=== PATIENT | male | born 1990 | race Caucasian/White ===

== ENCOUNTER 2016-09-21 16:56 | Inpatient (IN) | payer OTHER ==
[2016-09-21 16:56] VITALS: O2SAT 96
--- NOTE | 2016-09-21 17:25 | PD ---
HPI Chief Complaint: fell off of a roof Time Seen by Provider: 17:17 Travel History International Travel<30 days: No Contact w/Intl Traveler<30days: No Traveled to known affect area: No History of Present Illness HPI This patient presents as a trauma alert. He is a 32-year-old male who fell off of a roof. It's unclear how high the roof was. I gave report to trauma surgeon was present upon arrival of the patient. Patient arrives tachycardic at 125 with a blood pressure of 100 systolic and a rectal temperature of 103.6. He seems a bit confused. He is not able to provide much in the way of review of systems or history. He does not know why he fell. 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 Symptoms are severe. No alleviating factors. Duration 1 hour Review of Systems ROS Limitations: Clinical Condition, Altered Mental Status, Poor Historian Physical Exam Narrative GENERAL: Well-nourished, well-developed with confusion and immobilized. SKIN: Focused skin assessment reveals no rash and nodules. Skin is hot and dry. HEAD: Atraumatic. Normocephalic. EYES: Pupils equal and round. No scleral icterus. No injection or drainage. ENT: No nasal bleeding or discharge. Mucous membranes pink and moist. NECK: Trachea midline. No JVD. He has a jury rigged neck immobilizing device which we have switched to a [place] collar. He has no midline neck tenderness CARDIOVASCULAR: Regular rate and rhythm. No murmur appreciated. Tachycardic 125 RESPIRATORY: No accessory muscle use. Clear to auscultation. Breath sounds equal bilaterally. GASTROINTESTINAL: Abdomen soft, non-tender, nondistended. Hepatic and splenic margins not palpable. MUSCULOSKELETAL: No obvious deformities. No clubbing. No cyanosis. No edema. NEUROLOGICAL: Awake and alert. No obvious cranial nerve deficits. Motor grossly within normal limits. Normal speech. PSYCHIATRIC: Fairly calm mood and flat affect; insight and judgment reduced. Data Data Last Documented VS Vital Signs Date Time Temp Pulse Resp B/P Pulse Ox O2 Delivery O2 Flow Rate FiO2 09/21/16 18:00 Room Air 5.00 97 Nasal Cannula 09/21/16 16:56 96 Orders I-Stat Profile (09/21/16 17:20) I-Stat Creatinine (09/21/16 17:20) Complete Blood Count With Diff (09/21/16 17:20) Prothrombin Time / Inr (Pt) (09/21/16 17:20) Act Partial Throm Time (Ptt) (09/21/16 17:20) Type And Screen (09/21/16 17:20) Alcohol (Ethanol) (09/21/16 17:20) Chest, Single Ap (09/21/16 17:20) Pelvis, Ap Only (Routine) (09/21/16 17:20) Ct Thorax/ Chest W Iv Contrast (09/21/16 17:20) Ct Abd/Pel W Iv Contrast(Rout) (09/21/16 ) Ct Cerv Spine W/O Contrast (09/21/16 ) Ct Brain W/O Iv Contrast(Rout) (09/21/16 ) Iohexol 350 Inj (Omnipaque 350 Inj) (09/21/16 17:51) Collar [place] (09/21/16 ) Labs Laboratory Tests Test 09/21/16 17:00 White Blood Count 17.1 TH/MM3 Red Blood Count 4.77 MIL/MM3 Hemoglobin 14.0 GM/DL Bedside Hemoglobin 14.6 G/DL Hematocrit 41.9 % Bedside Hematocrit 43.0 % Mean Corpuscular Volume 87.7 FL Mean Corpuscular Hemoglobin 29.2 PG Mean Corpuscular Hemoglobin 33.3 % Concent Red Cell Distribution Width 13.1 % Platelet Count 432 TH/MM3 Mean Platelet Volume 8.3 FL Neutrophils (%) (Auto) 47.2 % Lymphocytes (%) (Auto) 39.6 % Monocytes (%) (Auto) 8.9 % Eosinophils (%) (Auto) 3.7 % Basophils (%) (Auto) 0.6 % Neutrophils # (Auto) 8.0 TH/MM3 Lymphocytes # (Auto) 6.8 TH/MM3 Monocytes # (Auto) 1.5 TH/MM3 Eosinophils # (Auto) 0.6 TH/MM3 Basophils # (Auto) 0.1 TH/MM3 CBC Comment AUTO DIFF Differential Total Cells 100 Counted Neutrophils % (Manual) 54 % Band Neutrophils % 6 % Lymphocytes % 33 % Monocytes % 5 % Eosinophils % 2 % Neutrophils # (Manual) 10.3 TH/MM3 Differential Comment FINAL DIFF MANUAL Platelet Estimate NORMAL Platelet Morphology Comment NORMAL Red Cell Morphology Comment NORMAL Prothrombin Time 10.7 SEC Prothromb Time International 1.0 RATIO Ratio Activated Partial 26.5 SEC Thromboplast Time Bedside Sodium 138 MMOL/L Bedside Potassium 3.7 MMOL/L Bedside Chloride 102 MMOL/L Bedside Blood Urea Nitrogen 9 MG/DL Bedside Creatinine 1.5 MG/DL Bedside Glucose 148 MG/DL Ethyl Alcohol Level LESS THAN 3 MG/DL Blood Type A POSITIVE Antibody Screen NEGATIVE MDM Medical Screen Exam Complete: Yes Emergency Medical Condition: Yes Medical Record Reviewed: Yes Differential Diagnosis Intracranial hemorrhage, intra-abdominal organ injury, hemorrhagic shock, heatstroke, meningitis Narrative Course 2 IVs placed I gave him 2 L normal saline IV bolus I reviewed his chest x-ray which shows no pneumothorax or rib fracture I reviewed his pelvis x-ray which looks normal Patient went to CT scanner with trauma surgeon Brain CT shows abnormal areas that are not definitively hemorrhage but should be followed Cervical spine CT is neg Chest CT shows groundglass infiltrate Abdomen and pelvis [place] [id number] Metabolic profile is normal Coagulation studies are normal Alcohol level is neg Patient is admitted and has a lot going on including fever tachycardia and mental status change as well as the abnormal brain CT and chest CT findings I considered the possibility he had heatstroke while up on the roof and that caused him to fall. Unclear at this point. Differential includes meningitis and other febrile illnesses Critical Care Narrative Aggregate critical care time was 36 minutes. Time to perform other separately billable procedures was not included in the critical care time. My time did not include minutes spent treating any other patients simultaneously or on activities that did not directly contribute to the patient's treatment. The services I provided to this patient were to treat and/or prevent clinically significant deterioration that could result in: Hemorrhagic shock, intracranial hemorrhage, intra-abdominal organ injury him a cardiopulmonary arrest I provided critical care services requiring my management, as noted below: Chart data review, documentation time, medication orders and management, vital sign assessments/reviewing monitor data, ordering and reviewing lab tests, ordering and interpreting/reviewing x-rays and diagnostic studies, care of the patient and discussion of the patient with the admitting physicians. Trauma Alert - Level One Trauma Alert Level One: Full trauma team activate Diagnosis Diagnosis: Primary Impression: Fall Qualified Code: W19.XXXA - Fall, initial encounter Additional Impressions: Head injury due to trauma Qualified Code: S09.90XA - Head injury due to trauma, initial encounter Altered mental status Qualified Code: R41.82 - Altered mental status, unspecified altered mental status type Fever Qualified Code: R50.9 - Fever, unspecified fever cause Admitting Physician Requests: it Toni Mosqueda MD Sep 21, 2016 17:25
[2016-09-21 17:27] LABS: I-STAT POTASSIUM 3.7 MMOL/L (3.5-4.9); I-STAT SODIUM 138 MMOL/L (138-146)
[2016-09-21 17:30] LABS: BASOPHIL # 0.1 TH/MM3 (0-0.2); BASOPHIL % 0.6 % (0.0-2.0); EOSINOPHIL # 0.6 TH/MM3 (0-0.4); EOSINOPHIL % 3.7 % (0.0-4.0); HEMATOCRIT 41.9 % (39.0-51.0); LYMPH % 39.6 % (9.0-44.0); LYMPHOCYTE # 6.8 TH/MM3 (1.0-4.8); MEAN CELL VOLUME 87.7 FL (80.0-100.0); MEAN CORPUSCULAR HEMOGLOBIN 29.2 PG (27.0-34.0); MEAN CORPUSCULAR HGB CONC 33.3 % (32.0-36.0); MONO % 8.9 % (0.0-8.0); NEUT % 47.2 % (16.0-70.0); PLATELET COUNT 432 TH/MM3 (150-450); RED BLOOD COUNT 4.77 MIL/MM3 (4.50-5.90); RED CELL DISTRIBUTION WIDTH 13.1 % (11.6-17.2); WHITE BLOOD COUNT 17.1 TH/MM3 (4.0-11.0)
[2016-09-21 17:33] LABS: HEMO FLAGS AUTO DIFF
[2016-09-21 17:37] LABS: APTT (PATIENT) 26.5 SEC (24.3-30.1); PROTHROMBIN TIME - PATIENT 10.7 SEC (9.8-11.6)
--- NOTE | 2016-09-21 17:50 | RADRPT ---
EXAM DATE/TIME: 09/21/2016 17:19 [facility] COMPARISON: No previous studies available for comparison. INDICATIONS : Trauma Alert-Patient fall from roof. RADIATION DOSE: 69.15 CTDIvol (mGy) MEDICAL HISTORY : Non-responsive. SURGICAL HISTORY : Non-responsive. ENCOUNTER: Initial ACUITY: 1 day PAIN SCALE: 0/10 LOCATION: cranial TECHNIQUE: Multiple contiguous axial images were obtained of the head. Using automated exposure control and adj ustment of the mA and/or kV according to patient size, radiation dose was kept as low as reasonably a chievable to obtain optimal diagnostic quality images. DICOM format image data is available electro nically for review and comparison. FINDINGS: The scan is suboptimal secondary to motion and positioning. There are couple of areas of subtly incre ased spontaneous density in the left basal ganglia region which are not clearly hemorrhage however fo llowup may be appropriate. The ventricles are grossly symmetric and normal. No abnormal extra-axial f luid accumulation or mass is identified. There is nothing to suggest acute infarction. There is mild sinus disease present. No evidence of skull fracture. CONCLUSION: Technically limited exam. Areas of subtly increased density in the left basal ganglia should likely b e followed. Johny Hitchcock MD on September 21, 2016 at 17:40 Board Certified Radiologist. This report was verified electronically.
[2016-09-21] MEDS ORDERED: IOHEXOL 350 MG/ML 10 ML VIAL (for RAD DIAG) IV ONE (17:51)
--- NOTE | 2016-09-21 17:56 | RADRPT ---
EXAM DATE/TIME: 09/21/2016 16:52 [facility] COMPARISON: No previous studies available for comparison. INDICATIONS : Trauma alert. Fall off roof. MEDICAL HISTORY : None. SURGICAL HISTORY : None. ENCOUNTER: Initial ACUITY: 1 day PAIN SCORE: Non-responsive. LOCATION: Bilateral chest FINDINGS: The lungs are clear without infiltrate, nodule, or mass. There is no appreciable pleural effusion fo r technique. Heart and mediastinum are unremarkable. CONCLUSION: No acute cardiopulmonary disease. Lashonda Fuentes MD on September 21, 2016 at 17:55 Board Certified Radiologist. This report was verified electronically.
[2016-09-21 18:00] VITALS: BP 116/54; PULSE 113; RESP 27; TEMP 100.6; O2SAT 95
[2016-09-21 18:03] LABS: BANDS 6 % (0-6); EOSINOPHILS 2 % (0-4); NEUTROPHIL # MANUAL DIFF 10.3 TH/MM3 (1.8-7.7); PLATELET ESTIMATE SMEAR NORMAL (NORMAL); PLATELET MORPHOLOGY NORMAL (NORMAL); POLYS (SEG NEUTROPHILS) 54 % (16-70); SCAN/DIFF FINAL DIFF MANUAL; WBC DIFF SAMPLE 100
--- NOTE | 2016-09-21 18:04 | RADRPT ---
EXAM DATE/TIME: 09/21/2016 16:52 [facility] COMPARISON: No previous studies available for comparison. INDICATIONS : Trauma alert. Fall off roof. MEDICAL HISTORY : None. SURGICAL HISTORY : None. ENCOUNTER: Initial ACUITY: 1 day PAIN SCORE: Non-responsive. LOCATION: Bilateral pelvis. FINDINGS: A single frontal view of the pelvis demonstrates artifact from the EMS board obscuring the left femor al neck. No fracture observed. The bony pelvic ring is intact. Bony mineralization is normal. The s oft tissues are intact. CONCLUSION: No fracture observed on this limited study. Keny Patrick Jr., MD on September 21, 2016 at 17:58 Board Certified Radiologist. This report was verified electronically.
--- NOTE | 2016-09-21 18:06 | RADRPT ---
EXAM DATE/TIME: 09/21/2016 17:21 [facility] COMPARISON: No previous studies available for comparison. INDICATIONS : Trauma, patient fell off roof. RADIATION DOSE: 45.28 CTDIvol (mGy) MEDICAL HISTORY : Non-responsive. SURGICAL HISTORY : Non-responsive. ENCOUNTER: Initial ACUITY: 1 day PAIN SCALE: 0/10 LOCATION: neck TECHNIQUE: Volumetric scanning of the cervical spine was performed. Multiplanar reconstructions in the sagittal, coronal and oblique axial planes were performed. Using automated exposure control and adjustment o f the mA and/or kV according to patient size, radiation dose was kept as low as reasonably achievable to obtain optimal diagnostic quality images. DICOM format image data is available electronically f or review and comparison. FINDINGS: VERTEBRAE: Normal vertebral body height. ALIGNMENT: No evidence of subluxation. C2-C3: The bony spinal canal is normal in size. No evidence of disc bulge or herniation. The neural forami na are bilaterally patent. C3-C4: The bony spinal canal is normal in size. No evidence of disc bulge or herniation. The neural forami na are bilaterally patent. C4-C5: The bony spinal canal is normal in size. No evidence of disc bulge or herniation. The neural forami na are bilaterally patent. C5-C6: The bony spinal canal is normal in size. No evidence of disc bulge or herniation. The neural forami na are bilaterally patent. C6-C7: The bony spinal canal is normal in size. No evidence of disc bulge or herniation. The neural forami na are bilaterally patent. C7-T1: The bony spinal canal is normal in size. No evidence of disc bulge or herniation. The neural forami na are bilaterally patent. CONCLUSION: Normal examination. Keny Patrick Jr., MD on September 21, 2016 at 18:03 Board Certified Radiologist. This report was verified electronically.
--- NOTE | 2016-09-21 18:10 | RADRPT ---
EXAM DATE/TIME: 09/21/2016 17:23 [facility] COMPARISON: No previous studies available for comparison. INDICATIONS : Trauma, patient feel off roof. IV CONTRAST: 100 cc Omnipaque 350 (iohexol) IV ; Cumulative dose for multiple exams. RADIATION DOSE: 10.37 CTDIvol (mGy) ; Combined studies - Thorax/Abdomen/Pelvis MEDICAL HISTORY : Non-responsive. SURGICAL HISTORY : Non-responsive. ENCOUNTER: Initial ACUITY: 1 day PAIN SCALE: 0/10 LOCATION: chest TECHNIQUE: Volumetric scanning of the chest was performed. Using automated exposure control and adjustment of t he mA and/or kV according to patient size, radiation dose was kept as low as reasonably achievable to obtain optimal diagnostic quality images. DICOM format image data is available electronically for review and comparison. Follow-up recommendations for incidentally detected pulmonary nodules are based at a minimum on nodul e size and patient risk factors according to Fleischner Society Guidelines. FINDINGS: LUNGS: Patchy areas of groundglass opacity are seen within the right upper lobe. There is a 1 cm area of nod ularity associated with this which is also groundglass in density. No focal mass. No bronchiectasis. PLEURA: There is no pleural thickening or pleural effusion. MEDIASTINUM: The heart and great vessels demonstrate no acute abnormality. There is no mediastinal or hilar lymph adenopathy. AXILLAE: Within normal limits. No lymphadenopathy. SKELETAL: Within normal limits for patient age. MISCELLANEOUS: The visualized upper abdominal organs demonstrate no acute abnormality. CONCLUSION: 1. No acute intrathoracic abnormality. 2. Vague area of groundglass opacity within the right upper lobe with an associated 1 cm area of grou ndglass nodularity. This could simply relate to atelectasis. Given the nodularity I would suggest a r epeat CT of the thorax in 6 months. Keny Patrick Jr., MD on September 21, 2016 at 18:05 Board Certified Radiologist. This report was verified electronically.
--- NOTE | 2016-09-21 18:13 | RADRPT ---
EXAM DATE/TIME: 09/21/2016 17:25 [facility] COMPARISON: No previous studies available for comparison. INDICATIONS : Trauma Alert-Patient fall from roof. IV CONTRAST: 100 cc Omnipaque 350 (iohexol) IV ORAL CONTRAST: No oral contrast ingested. RADIATION DOSE: 10.73 CTDIvol (mGy) ; Combined studies - Thorax/Abdomen/Pelvis MEDICAL HISTORY : Non-responsive. SURGICAL HISTORY : Non-responsive. ENCOUNTER: Initial ACUITY: 1 day PAIN SCALE: Non-responsive LOCATION: Bilateral lower quadrant TECHNIQUE: Volumetric scanning of the abdomen and pelvis was performed. Using automated exposure control and ad justment of the mA and/or kV according to patient size, radiation dose was kept as low as reasonably achievable to obtain optimal diagnostic quality images. DICOM format image data is available electro nically for review and comparison. FINDINGS: LOWER LUNGS: The visualized lower lungs are clear. LIVER: Homogeneous density without lesion. There is no dilation of the biliary tree. No calcified gallston es. SPLEEN: Normal size without lesion. PANCREAS: Within normal limits. KIDNEYS: Normal in size and shape. There is no mass, stone or hydronephrosis. ADRENAL GLANDS: Within normal limits. VASCULAR: There is no aortic aneurysm. BOWEL/MESENTERY: The stomach, small bowel, and colon demonstrate no acute abnormality. There is no free intraperitone al air or fluid. ABDOMINAL WALL: Within normal limits. RETROPERITONEUM: There is no lymphadenopathy. BLADDER: No wall thickening or mass. REPRODUCTIVE: Within normal limits. INGUINAL: There is no lymphadenopathy or hernia. 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 No fractures or dislocations. CONCLUSION: 1. No acute abnormality. Keny Patrick Jr., MD on September 21, 2016 at 18:08 Board Certified Radiologist. This report was verified electronically.
[2016-09-21] MEDS ORDERED: MISCELLANEOUS NURSING INFORMATION XX SCH (18:30)
[2016-09-21] MEDS ORDERED: ONDANSETRON HCL 4 MG/2 ML VIAL IV PRN (18:30)
[2016-09-21] MEDS ORDERED: CHLORHEXIDINE GLUCONATE 2 % 1 PACK (2 CLOTHS) TOP PRN (18:30)
--- NOTE | 2016-09-21 18:51 | HHI.HP ---
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-story height, according to paramedics he was apparently having agonal breathing was not awake or alert, arrival patient is tachycardic, rectal temperature 103, slow to respond, ultimately a GCS of 14-15, appears dehydrated, BPstable, moving all 4 extremities Review of Systems Constitutional: DENIES: Diaphoretic episodes, Fatigue, Fever, Weight gain, Weight loss, Chills, Dizziness, Change in appetite, Night Sweats Endocrine: DENIES: Heat/cold intolerance, Polydipsia, Polyuria, Polyphagia Eyes: DENIES: Blurred vision, Diplopia, Eye inflammation, Eye pain, Vision loss , Photosensitivity, Double Vision Ears, nose, mouth, throat: DENIES: Tinnitus, Hearing loss, Vertigo, Nasal discharge, Oral lesions, Throat pain, Hoarseness, Ear Pain, Running Nose, Epistaxis, Sinus Pain, Toothache, Odynophagia Respiratory: DENIES: Apneas, Cough, Snoring, Wheezing, Hemoptysis, Sputum production, Shortness of breath Cardiovascular: DENIES: Chest pain, Palpitations, Syncope, Dyspnea on Exertion , PND, Lower Extremity Edema, Orthopnea, Claudication Gastrointestinal: DENIES: Abdominal pain, Black stools, Bloody stools, Constipation, Diarrhea, Nausea, Vomiting, Difficulty Swallowing, Anorexia Genitourinary: DENIES: Sexual dysfunction, Urinary frequency, Urinary incontinence, Urgency, Hematuria, Dysuria, Nocturia, Penile Discharge, Testicular Pain, Testicular Swelling Musculoskeletal: DENIES: Joint pain, Muscle aches, Stiffness, Joint Swelling, Back pain, Neck pain Integumentary: DENIES: Abnormal pigmentation, Nail changes, Pruritus, Rash Hematologic/lymphatic: DENIES: Bruising, Lymphadenopathy Immunologic/allergic: DENIES: Eczema, Urticaria Neurologic: DENIES: Abnormal gait, Headache, Localized weakness, Paresthesias, Seizures, Speech Problems, Tremor, Poor Balance Psychiatric: DENIES: Anxiety, Confusion, Mood changes, Depression, Hallucinations, Agitation, Suicidal Ideation, Homicidal Ideation, Delusions Past Family Social History Allergies: Coded Allergies: No Known Allergies (Unverified , 09/21/16) Past Medical History none Past Surgical History none Reported Medications none Active Ordered Medications none Family History none Social History none Physical Exam Vital Signs Vital Signs Date Time Temp Pulse Resp B/P Pulse Ox O2 Delivery O2 Flow Rate FiO2 09/21/16 18:00 Room Air 5.00 97 Nasal Cannula 09/21/16 16:56 96 4.00 09/21/16 16:56 96 Nasal Cannula 4.00 Physical Exam GENERAL: This is a well-nourished, well-developed patient, in mildt distress. SKIN: No rashes, ecchymoses or lesions. Cool and dry. HEAD: Atraumatic. Normocephalic. No temporal or scalp tenderness. EYES: Pupils equal round and reactive. Extraocular motions intact. No scleral icterus. No injection or drainage. ENT: Nose without bleeding, purulent drainage. Airway patent. NECK: Trachea midline. No JVD or lymphadenopathy. Supple, nontender, no meningeal signs. CARDIOVASCULAR: Regular rate and rhythm without murmurs, gallops, or rubs. RESPIRATORY: Clear to auscultation. Breath sounds equal bilaterally. No wheezes , rales, or rhonchi. GASTROINTESTINAL: Abdomen soft, non-tender, nondistended. or palpable masses. No guarding. MUSCULOSKELETAL: Extremities without clubbing, cyanosis, or edema. No joint tenderness, effusion, or edema noted. NEUROLOGICAL: Awake and alert. Cranial nerves II through XII intact. Motor and sensory grossly within normal limits. Five out of 5 muscle strength in all muscle groups. Normal speech. Laboratory Laboratory Tests Test 09/21/16 17:00 White Blood Count 17.1 Red Blood Count 4.77 Hemoglobin 14.0 Bedside Hemoglobin 14.6 Hematocrit 41.9 Bedside Hematocrit 43.0 Mean Corpuscular Volume 87.7 Mean Corpuscular Hemoglobin 29.2 Mean Corpuscular Hemoglobin 33.3 Concent Red Cell Distribution Width 13.1 Platelet Count 432 Mean Platelet Volume 8.3 Neutrophils (%) (Auto) 47.2 Lymphocytes (%) (Auto) 39.6 Monocytes (%) (Auto) 8.9 Eosinophils (%) (Auto) 3.7 Basophils (%) (Auto) 0.6 Neutrophils # (Auto) 8.0 Lymphocytes # (Auto) 6.8 Monocytes # (Auto) 1.5 Eosinophils # (Auto) 0.6 Basophils # (Auto) 0.1 CBC Comment AUTO DIFF Differential Total Cells 100 Counted Neutrophils % (Manual) 54 Band Neutrophils % 6 Lymphocytes % 33 Monocytes % 5 Eosinophils % 2 Neutrophils # (Manual) 10.3 Differential Comment FINAL DIFF MANUAL Platelet Estimate NORMAL Platelet Morphology Comment NORMAL Red Cell Morphology Comment NORMAL Prothrombin Time 10.7 Prothromb Time International 1.0 Ratio Activated Partial 26.5 Thromboplast Time Bedside Sodium 138 Bedside Potassium 3.7 Bedside Chloride 102 Bedside Blood Urea Nitrogen 9 Bedside Creatinine 1.5 Bedside Glucose 148 Ethyl Alcohol Level LESS THAN 3 Blood Type A POSITIVE Antibody Screen NEGATIVE Result Diagram: 09/21/16 1700 Course Last Impressions Pelvis X-Ray 09/21/16 1720 Signed Impressions: Service Date/Time: Wednesday, September 21, 2016 16:52 - CONCLUSION: No fracture observed on this limited study. Keny Patrick Jr., MD Chest X-Ray 09/21/161719 Signed Impressions: Service Date/Time: Wednesday, September 21, 2016 16:52 - CONCLUSION: No acute cardiopulmonary disease. Lashonda Fuentes MD Chest CT 09/21/160 Signed Impressions: Service Date/Time: Wednesday, September 21, 2016 17:23 - CONCLUSION: 1. No acute intrathoracic abnormality. 2. Vague area of groundglass opacity within the right upper lobe with an associated 1 cm area of groundglass nodularity. This could simply relate to atelectasis. Given the nodularity I would suggest a repeat CT of the thorax in 6 months. Keny Patrick Jr., MD Head CT 09/21/16 0000 Signed Impressions: Service Date/Time: Wednesday, September 21, 2016 17:19 - CONCLUSION: Technically limited exam. Areas of subtly increased density in the left basal ganglia should likely be followed. Johny Hitchcock MD Cervical Spine CT 09/21/16 0000 Signed Impressions: Service Date/Time: Wednesday, September 21, 2016 17:21 - CONCLUSION: Normal examination. Keny Patrick Jr., MD Abdomen/Pelvis CT 09/21/16 0000 Signed Impressions: Service Date/Time: Wednesday, September 21, 2016 17:25 - CONCLUSION: 1. No acute abnormality. Keny Patrick Jr., MD Assessment and Plan Assessment and Plan Heat stroke no Traumatic injuries on CAT scan also denies pain neuro intact Admit to the ICU follow temperature If requires- active cooling hydrate Fouzia Eduardo MD Sep 21, 2016 18:51
--- NOTE | 2016-09-21 19:05 | PD.CONS ---
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 On arrival to emergency department the patient was tachycardic with a rectal temperature 103 and slow response. His GCS in the emergency department was 14-15 heat, he appeared significantly dehydrated without significant body injury. Review of Systems Constitutional: COMPLAINS OF: Diaphoretic episodes, DENIES: Fatigue, Fever, Weight gain, Weight loss, Chills, Dizziness, Change in appetite, Night Sweats Endocrine: DENIES: Heat/cold intolerance, Polydipsia, Polyuria, Polyphagia Eyes: DENIES: Blurred vision, Diplopia, Eye inflammation, Eye pain, Vision loss , Photosensitivity, Double Vision Ears, nose, mouth, throat: DENIES: Tinnitus, Hearing loss, Vertigo, Nasal discharge, Oral lesions, Throat pain, Hoarseness, Ear Pain, Running Nose, Epistaxis, Sinus Pain, Toothache, Odynophagia Respiratory: DENIES: Apneas, Cough, Snoring, Wheezing, Hemoptysis, Sputum production, Shortness of breath Cardiovascular: DENIES: Chest pain, Palpitations, Syncope, Dyspnea on Exertion , PND, Lower Extremity Edema, Orthopnea, Claudication Gastrointestinal: DENIES: Abdominal pain, Black stools, Bloody stools, Constipation, Diarrhea, Nausea, Vomiting, Difficulty Swallowing, Anorexia Genitourinary: DENIES: Sexual dysfunction, Urinary frequency, Urinary incontinence, Urgency, Hematuria, Dysuria, Nocturia, Penile Discharge, Testicular Pain, Testicular Swelling Musculoskeletal: DENIES: Joint pain, Muscle aches, Stiffness, Joint Swelling, Back pain, Neck pain Integumentary: DENIES: Abnormal pigmentation, Nail changes, Pruritus, Rash Hematologic/lymphatic: DENIES: Bruising, Lymphadenopathy Immunologic/allergic: DENIES: Eczema, Urticaria Neurologic: DENIES: Abnormal gait, Headache, Localized weakness, Paresthesias, Seizures, Speech Problems, Tremor, Poor Balance Psychiatric: DENIES: Anxiety, Confusion, Mood changes, Depression, Hallucinations, Agitation, Suicidal Ideation, Homicidal Ideation, Delusions Past Family Social History Allergies: Coded Allergies: No Known Allergies (Unverified , 09/21/16) Past Medical History None Past Surgical History No past surgical history Reported Medications No home medications Active Ordered Medications Current Medications Medications (Trade) Dose Ordered Sig/Glynn Route PRN Reason Start Time Stop Time Status Last Admin Dose Admin Sodium Chloride (NS 1000 ml Inj) 1,000 ml @ 125 mls/hr Q8H IV 09/21/16 18:30 09/22/16 02:30 Ondansetron HCl (Zofran Inj) 4 mg Q6H PRN IV NAUSEA OR VOMITING 09/21/16 18:30 Enoxaparin Sodium (Lovenox Inj) 30 mg Q24H SQ 09/21/16 18:30 09/21/16 22:07 Miscellaneous Information 1 Q361D XX 09/21/16 18:30 Chlorhexidine Gluconate (Chlorhexidine 2% Cloth) 3 pack Taper DAILY@04 TOP 09/22/16 04:00 09/18/17 03:59 Chlorhexidine Gluconate (Chlorhexidine 2% Cloth) 3 pack UNSCH PRN TOP HYGIENIC CARE 09/21/16 18:30 Senna/Docusate Sodium (Cat-Colace) 1 tab BID PO 09/21/16 21:00 Acetaminophen (Tylenol) 650 mg Q6H PRN PO HEADACHE 09/21/16 23:45 09/21/16 23:35 Family History No family history of early coronary artery disease or cancer Social History Denies alcohol or illicit drug or tobacco abuse Physical Exam Vital Signs Vital Signs Date Time Temp Pulse Resp B/P Pulse Ox O2 Delivery O2 Flow Rate FiO2 09/21/16 18:00 100.6 113 27 116/54 95 09/21/16 18:00 Room Air 5.00 97 Nasal Cannula 09/21/16 16:56 96 4.00 09/21/16 16:56 96 Nasal Cannula 4.00 Physical Exam GENERAL: Well-nourished, well-developed patient. SKIN: Warm and dry. HEAD: Normocephalic. EYES: No scleral icterus. No injection or drainage. NECK: Supple, trachea midline. No JVD or lymphadenopathy. CARDIOVASCULAR: Regular rate and rhythm without murmurs, gallops, or rubs. RESPIRATORY: Breath sounds equal bilaterally. No accessory muscle use. GASTROINTESTINAL: Abdomen soft, non-tender, nondistended. MUSCULOSKELETAL: No cyanosis, or edema. BACK: Nontender without obvious deformity. No CVA tenderness. EXTREMITIES: No clubbing cyanosis or edema Laboratory Laboratory Tests Test 09/21/16 17:00 White Blood Count 17.1 Red Blood Count 4.77 Hemoglobin 14.0 Bedside Hemoglobin 14.6 Hematocrit 41.9 Bedside Hematocrit 43.0 Mean Corpuscular Volume 87.7 Mean Corpuscular Hemoglobin 29.2 Mean Corpuscular Hemoglobin 33.3 Concent Red Cell Distribution Width 13.1 Platelet Count 432 Mean Platelet Volume 8.3 Neutrophils (%) (Auto) 47.2 Lymphocytes (%) (Auto) 39.6 Monocytes (%) (Auto) 8.9 Eosinophils (%) (Auto) 3.7 Basophils (%) (Auto) 0.6 Neutrophils # (Auto) 8.0 Lymphocytes # (Auto) 6.8 Monocytes # (Auto) 1.5 Eosinophils # (Auto) 0.6 Basophils # (Auto) 0.1 CBC Comment AUTO DIFF Differential Total Cells 100 Counted Neutrophils % (Manual) 54 Band Neutrophils % 6 Lymphocytes % 33 Monocytes % 5 Eosinophils % 2 Neutrophils # (Manual) 10.3 Differential Comment FINAL DIFF MANUAL Platelet Estimate NORMAL Platelet Morphology Comment NORMAL Red Cell Morphology Comment NORMAL Prothrombin Time 10.7 Prothromb Time International 1.0 Ratio Activated Partial 26.5 Thromboplast Time Bedside Sodium 138 Bedside Potassium 3.7 Bedside Chloride 102 Bedside Blood Urea Nitrogen 9 Bedside Creatinine 1.5 Bedside Glucose 148 Ethyl Alcohol Level LESS THAN 3 Blood Type A POSITIVE Antibody Screen NEGATIVE Result Diagram: 09/21/16 1700 Imaging Last 24 hours Impressions Pelvis X-Ray 09/21/161719 Signed Impressions: Service Date/Time: Wednesday, September 21, 2016 16:52 - CONCLUSION: No fracture observed on this limited study. Keny Patrick Jr., MD Chest X-Ray 09/21/161719 Signed Impressions: Service Date/Time: Wednesday, September 21, 2016 16:52 - CONCLUSION: No acute cardiopulmonary disease. Lashonda Fuentes MD Chest CT 09/21/161719 Signed Impressions: Service Date/Time: Wednesday, September 21, 2016 17:23 - CONCLUSION: 1. No acute intrathoracic abnormality. 2. Vague area of groundglass opacity within the right upper lobe with an associated 1 cm area of groundglass nodularity. This could simply relate to atelectasis. Given the nodularity I would suggest a repeat CT of the thorax in 6 months. Keny Patrick Jr., MD Assessment and Plan Assessment and Plan Status post fall - Without significant injuries - Admitted to ICU per trauma - Neuro checks per unit protocol Heat stroke - IV hydration - Forming if needed - Monitor labs - Supportive care DVT GI prophylaxis - Teds SCDs - Early aggressive mobilization - Regular diet Level III Fran Grover MD Sep 21, 2016 19:05
[2016-09-21 20:00] VITALS: BP 118/79; PULSE 96; RESP 22; TEMP 99.1; O2SAT 100
[2016-09-21] MEDS: SODIUM CHLOR 0.9% 1000 ML INJ 1,000 ML IV SCH (20:15)
[2016-09-21] MEDS: DOCUSATE SODIUM 50 MG/SENNA 8.6 MG TAB PO SCH (21:00)
[2016-09-21 21:10] VITALS: O2SAT 98
[2016-09-21 22:00] VITALS: PULSE 91
[2016-09-21] MEDS: ENOXAPARIN SODIUM 30 MG/0.3 ML SYRINGE SQ SCH (22:07)
[2016-09-21 22:47] LABS: AMPHETAMINE, URINE NEG (NEG); BARBITURATES, URINE NEG (NEG); COCAINE, URINE NEG (NEG)
[2016-09-21] MEDS: ACETAMINOPHEN 325 MG TAB PO PRN (23:35)
[2016-09-22] VITALS (14 sets, daily range): BP systolic 106–121; BP diastolic 56–64; PULSE 69–86; RESP 19–22; TEMP 97.7–98.6; O2SAT 94–100
[2016-09-22] MEDS: SODIUM CHLOR 0.9% 1000 ML INJ 1,000 ML IV SCH ×2 (02:30→10:29)
[2016-09-22] MEDS: CHLORHEXIDINE GLUCONATE 2 % 1 PACK (2 CLOTHS) TOP SCH (04:00)
[2016-09-22 04:59] LABS: AUTOMATED NEUTROPHIL # 6.9 TH/MM3 (1.8-7.7); BASOPHIL # 0.1 TH/MM3 (0-0.2); BASOPHIL % 0.5 % (0.0-2.0); EOSINOPHIL # 0.2 TH/MM3 (0-0.4); EOSINOPHIL % 1.7 % (0.0-4.0); HEMATOCRIT 38.9 % (39.0-51.0); HEMO FLAGS DIFF FINAL; LYMPH % 22.9 % (9.0-44.0); LYMPHOCYTE # 2.4 TH/MM3 (1.0-4.8); MEAN CELL VOLUME 84.5 FL (80.0-100.0); MEAN CORPUSCULAR HEMOGLOBIN 29.5 PG (27.0-34.0); MEAN CORPUSCULAR HGB CONC 34.9 % (32.0-36.0); MONO % 9.9 % (0.0-8.0); PLATELET COUNT 336 TH/MM3 (150-450); RED CELL DISTRIBUTION WIDTH 12.6 % (11.6-17.2); WHITE BLOOD COUNT 10.6 TH/MM3 (4.0-11.0)
[2016-09-22 05:31] LABS: BICARBONATE 23.2 MEQ/L (21.0-32.0); POTASSIUM 3.5 MEQ/L (3.5-5.1)
[2016-09-22] MEDS: DOCUSATE SODIUM 50 MG/SENNA 8.6 MG TAB PO SCH ×2 (09:00→20:56)
--- NOTE | 2016-09-22 10:41 | HHI.CCPN ---
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 On arrival to emergency department the patient was tachycardic with a rectal temperature 103 and slow response. His GCS in the emergency department was 14-15 heat, he appeared significantly dehydrated without significant body injury. Subjective: 09/22: No acute issues overnight. Patient complained of left foot pain, pulses 2 + and palpable, patient states limited range of motion flexion and extension of toes on left foot. Patient tolerating a diet. Vital signs are stable. Objective Vital Signs Date Time Temp Pulse Resp B/P Pulse Ox O2 Delivery O2 Flow Rate FiO2 09/22/16 06:00 82 09/22/16 04:00 97.7 22 115/58 97 09/21/16 21:10 21 09/21/16 20:30 Room Air 09/21/16 19:00 2.00 Intake and Output 09/21/16 09/21/16 09/22/16 08:00 16:00 00:00 Intake Total 1480 ml Output Total 1000 ml Balance 480 ml Result Diagram: 09/22/16 0406 09/22/16 0406 Imaging Last 24 hours Impressions Pelvis X-Ray 09/21/161719 Signed Impressions: Service Date/Time: Wednesday, September 21, 2016 16:52 - CONCLUSION: No fracture observed on this limited study. Keny Patrick Jr., MD Chest X-Ray 09/21/161719 Signed Impressions: Service Date/Time: Wednesday, September 21, 2016 16:52 - CONCLUSION: No acute cardiopulmonary disease. Lashonda Fuentes MD Chest CT 09/21/161719 Signed Impressions: Service Date/Time: Wednesday, September 21, 2016 17:23 - CONCLUSION: 1. No acute intrathoracic abnormality. 2. Vague area of groundglass opacity within the right upper lobe with an associated 1 cm area of groundglass nodularity. This could simply relate to atelectasis. Given the nodularity I would suggest a repeat CT of the thorax in 6 months. Keny Patrick Jr., MD Objective Remarks GENERAL: Well-nourished, well-developed patient in mild distress with complaints of left foot pain SKIN: Warm and dry. HEAD: Normocephalic. EYES: No scleral icterus. No injection or drainage. NECK: Supple, trachea midline. No JVD or lymphadenopathy. CARDIOVASCULAR: Regular rate and rhythm without murmurs, gallops, or rubs. RESPIRATORY: Breath sounds equal bilaterally. No accessory muscle use. GASTROINTESTINAL: Abdomen soft, non-tender, nondistended. MUSCULOSKELETAL: No cyanosis, noted left foot edema to mid tibia extension and flexion of toes positive pulses 2+ DP and PT left foot BACK: Nontender without obvious deformity. No CVA tenderness. EXTREMITIES: No clubbing cyanosis or edema Procedures Pending multiple x-ray views left foot Urinary Catheter: No Vascular Central Line Catheter: No A/P Assessment and Plan Status post fall - Without significant injuries - Admitted to ICU per trauma - Neuro checks per unit protocol Heat stroke - IV hydration - Monitor labs - Supportive care DVT GI prophylaxis - Teds SCDs - Early aggressive mobilization - Regular diet Level 2 Dispo: Patient progressing well critical care medicine will sign off, transfer per primary team Physician Prachi Victoria MD Sep 22, 2016 10:41
--- NOTE | 2016-09-22 11:38 | RADRPT ---
EXAM DATE/TIME: 09/22/2016 11:08 [facility] COMPARISON: No previous studies available for comparison. INDICATIONS : Left ankle pain after fall off roof. MEDICAL HISTORY : None. SURGICAL HISTORY : None. ENCOUNTER: Initial ACUITY: 2 days PAIN SCORE: 10/10 LOCATION: Left ankle. FINDINGS: No definite fractures, or dislocations are identified. No definite lytic or sclerotic lesion is seen . The joint spaces are well maintained. CONCLUSION: Unremarkable study. Lashonda Fuentes MD on September 22, 2016 at 11:36 Board Certified Radiologist. This report was verified electronically.
--- NOTE | 2016-09-22 11:38 | RADRPT ---
EXAM DATE/TIME: 09/22/2016 11:05 [facility] COMPARISON: No previous studies available for comparison. INDICATIONS : Left foot pain after falling off roof. MEDICAL HISTORY : None. SURGICAL HISTORY : None. ENCOUNTER: Initial ACUITY: 2 days PAIN SCORE: 5/10 LOCATION: Left anterior foot. FINDINGS: There are displaced and angulated fractures of second third and fourth distal metatarsal bones. There is no intra-articular extension and extensive soft tissue swelling is seen. CONCLUSION: Distal metatarsal fractures. Lashonda Fuentes MD on September 22, 2016 at 11:30 Board Certified Radiologist. This report was verified electronically.
[2016-09-22] MEDS: oxyCODONE/ACETAMINOPHEN 5 MG/325 MG TAB PO PRN ×2 (12:24→18:05)
--- NOTE | 2016-09-22 15:49 | HHI.CCPN ---
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 He was tachycardic and had a temp of 103.6 upon admission. Agonal breathing at the scene, however GCS increased to 14-15 in the trauma bay. INJURIES: LEFT distal metatarsal fxs (2nd, 3rd and 4th) * CT in 6 months - nodule - ground glass 24 Hour Review/Hospital Course 09/22/2016 PTD: 1 Pt awake and sitting up in bed upon morning rounds. Friend at bedside. Pt c/o LEFT foot pain and swelling. (Lesvia Thompson) Objective Vital Signs Date Time Temp Pulse Resp B/P Pulse Ox O2 Delivery O2 Flow Rate FiO2 09/22/16 08:31 100 21 09/22/16 06:00 82 09/22/16 04:00 97.7 22 115/58 09/21/16 20:30 Room Air 09/21/16 19:00 2.00 Intake and Output 09/21/16 09/21/16 09/22/16 08:00 16:00 00:00 Intake Total 1480 ml Output Total 1000 ml Balance 480 ml (Lesvia Thompson) Result Diagram: 09/22/16 0406 09/22/16 0406 Imaging Last 24 hours Impressions Foot X-Ray 09/22/16 0000 Signed Impressions: Service Date/Time: Thursday, September 22, 2016 11:05 - CONCLUSION: Distal metatarsal fractures. Lashonda Fuentes MD Ankle X-Ray 09/22/16 0000 Signed Impressions: Service Date/Time: Thursday, September 22, 2016 11:08 - CONCLUSION: Unremarkable study. Lashonda Fuentes MD Pelvis X-Ray 09/21/161719 Signed Impressions: Service Date/Time: Wednesday, September 21, 2016 16:52 - CONCLUSION: No fracture observed on this limited study. Keny Patrick Jr., MD Chest X-Ray 09/21/161719 Signed Impressions: Service Date/Time: Wednesday, September 21, 2016 16:52 - CONCLUSION: No acute cardiopulmonary disease. Lashonda Fuentes MD Chest CT 09/21/161719 Signed Impressions: Service Date/Time: Wednesday, September 21, 2016 17:23 - CONCLUSION: 1. No acute intrathoracic abnormality. 2. Vague area of groundglass opacity within the right upper lobe with an associated 1 cm area of groundglass nodularity. This could simply relate to atelectasis. Given the nodularity I would suggest a repeat CT of the thorax in 6 months. Keny Patrick Jr., MD Objective Remarks GENERAL: This is a 26 year old male sitting up in bed. No distress noted. Painful. SKIN: Warm and dry. HEAD: Atraumatic. Normocephalic. EYES: PERRLA ENT: No nasal bleeding or discharge. Mucous membranes pink and moist. NECK: Trachea midline. No JVD. CARDIOVASCULAR: Regular rate and rhythm. RESPIRATORY: No accessory muscle use. Lungs are clear to auscultation. Breath sounds equal bilaterally. No distress or dyspnea. GASTROINTESTINAL: BS + x 4 quads. Abdomen soft, non-tender, nondistended. MUSCULOSKELETAL: Extremities without cyanosis, or edema. LEFT foot with swelling and increased pain complains today. + peripheral pulses x 4 extremities. Warm with good capillary refill and sensation. MAEW. NEUROLOGICAL: Awake and alert. Normal speech and pattern. (Lesvia Thompson BRAIDING MACHINE TENDER) Urinary Catheter Assessment Urinary Catheter: No (Lesvia Thompson) Vascular Central Line Catheter Vascular Central Line Catheter: No (Lesvia Thompson) Assessment and Plan Assessment: (1) Fever ICD Code: R50.9 Status: Acute (2) Altered mental status ICD Code: R41.82 Status: Acute (3) Fall ICD Code: W19.XXXA Status: Acute Plan [place]: This is a 26-year-old male who fell from a roof. He was originally tachycardic and arrived with a temperature 1 is 3.6. He had agonal breathing at the scene. GCS 14-15 in the trauma bay. INJURIES: LEFT distal metatarsal fxs (2nd, 3rd and 4th) Consults: Podiatry. [facility]. Diet: Regular diet. Tolerating po diet. Encourage good po intake with each meal. Pulmonary: Encourage good pulmonary toileting. IS at bedside and pt encouraged to use. Rationale for use explained to patient, and verbalized understanding. PAIN Management: Percocet 5-10 mg every 4 hours. Patient complaining of pain to the left foot this a.m. X-rays obtained of the foot and ankle. Patient is noted to have a LEFT distal metatarsal fractures ( second third and fourth) consults placed to podiatry to assist in evaluation and further care. Activity: OOB. PT and OT ordered. (Awaiting weightbearing status once podiatry evaluate patient) GI prophylaxis: Not indicated at this time Bowel regimen: Colace and MOM. DVT prophylaxis: Mechanical VTE with SCDs. Chemical management with Lovenox 30 BID SQ. DC Planning: Case management consulted for assistance with final discharge disposition. Emotional support provided to patient and family at bedside and plan of care discussed. Discussed with RN at bedside. Patient is hemodynamically stable and being managed on the med/surg floor. 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
[2016-09-22] MEDS: ENOXAPARIN SODIUM 30 MG/0.3 ML SYRINGE SQ SCH (18:05)
--- NOTE | 2016-09-22 18:41 | PD.CONS ---
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 He sustained injury to L foot and has L foot pain. XR shows fractures of metatarsals Past Family Social History Allergies: Coded Allergies: No Known Allergies (Unverified , 09/21/16) Past Medical History denies Past Surgical History denies Reported Medications denies Active Ordered Medications Current Medications Medications (Trade) Dose Ordered Sig/Glynn Route Start Time Stop Time Status Last Admin (Zofran Inj) 4 mg Q6H PRN IV 09/21/16 18:30 (Lovenox Inj) 30 mg Q24H SQ 09/21/16 18:30 09/22/16 18:05 Miscellaneous Information 1 Q361D XX 09/21/16 18:30 (Chlorhexidine 2% Cloth) 3 pack Taper DAILY@04 TOP 09/22/16 04:00 09/18/17 03:59 09/22/16 04:00 (Chlorhexidine 2% Cloth) 3 pack UNSCH PRN TOP 09/21/16 18:30 (Cat-Colace) 1 tab BID PO 09/21/16 21:00 09/22/16 09:00 (Tylenol) 650 mg Q6H PRN PO 09/21/16 23:45 09/21/16 23:35 (Percocet 5-325 Mg) 1 tab Q6H PRN PO 09/22/16 12:15 09/22/16 18:05 Family History denies Social History denies Physical Exam Vital Signs Vital Signs Date Time Temp Pulse Resp B/P Pulse Ox O2 Delivery O2 Flow Rate FiO2 09/22/16 18:00 71 09/22/16 16:00 98.4 69 20 121/58 100 09/22/16 16:00 69 09/22/16 14:00 74 09/22/16 12:00 78 09/22/16 12:00 98.1 78 22 112/58 100 09/22/16 10:00 77 09/22/16 08:31 100 21 09/22/16 08:00 72 09/22/16 08:00 98.3 72 22 114/56 100 09/22/16 06:00 82 09/22/16 04:00 97.7 86 22 115/58 97 09/22/16 04:00 86 09/22/16 02:00 82 09/22/16 00:00 86 09/22/16 00:00 98.6 86 22 106/56 94 09/21/16 22:00 91 09/21/16 21:10 98 21 09/21/16 20:30 98 Room Air 09/21/16 20:00 96 09/21/16 20:00 99.1 96 22 118/79 100 09/21/16 19:00 100 Nasal Cannula 2.00 Physical Exam neurovascularly intact. Compartments soft. Able to flex/extend digits. Palpable pedal pulses. Brisk capillary refill to digits. Forefoot diffusely tender. No open lesions noted. Laboratory Laboratory Tests Test 09/21/16 09/21/16 09/22/16 22:30 22:35 04:06 Nasal Screen MRSA (PCR) MRSA NOT DETECTED Urine Opiates Screen NEG Urine Barbiturates Screen NEG Urine Amphetamines Screen NEG Urine Benzodiazepines Screen NEG Urine Cocaine Screen NEG Urine Cannabinoids Screen NEG White Blood Count 10.6 Red Blood Count 4.60 Hemoglobin 13.6 Hematocrit 38.9 Mean Corpuscular Volume 84.5 Mean Corpuscular Hemoglobin 29.5 Mean Corpuscular Hemoglobin 34.9 Concent Red Cell Distribution Width 12.6 Platelet Count 336 Mean Platelet Volume 8.1 Neutrophils (%) (Auto) 65.0 Lymphocytes (%) (Auto) 22.9 Monocytes (%) (Auto) 9.9 Eosinophils (%) (Auto) 1.7 Basophils (%) (Auto) 0.5 Neutrophils # (Auto) 6.9 Lymphocytes # (Auto) 2.4 Monocytes # (Auto) 1.1 Eosinophils # (Auto) 0.2 Basophils # (Auto) 0.1 CBC Comment DIFF FINAL Differential Comment Sodium Level 140 Potassium Level 3.5 Chloride Level 110 Carbon Dioxide Level 23.2 Anion Gap 7 Blood Urea Nitrogen 7 Creatinine 0.94 Estimat Glomerular Filtration 99 Rate Random Glucose 88 Calcium Level 8.3 Result Diagram: 09/22/16 0406 09/22/16 0406 Imaging Last Impressions Foot X-Ray 09/22/16 0000 Signed Impressions: Service Date/Time: Thursday, September 22, 2016 11:05 - CONCLUSION: Distal metatarsal fractures. Lashonda Fuentes MD Ankle X-Ray 09/22/16 Signed Impressions: Service Date/Time: Thursday, September 22, 2016 11:08 - CONCLUSION: Unremarkable study. Lashonda Fuentes MD Pelvis X-Ray 09/21/161719 Signed Impressions: Service Date/Time: Wednesday, September 21, 2016 16:52 - CONCLUSION: No fracture observed on this limited study. Keny Patrick Jr., MD Chest X-Ray 09/21/161719 Signed Impressions: Service Date/Time: Wednesday, September 21, 2016 16:52 - CONCLUSION: No acute cardiopulmonary disease. Lashonda Fuentes MD Chest CT 09/21/161719 Signed Impressions: Service Date/Time: Wednesday, September 21, 2016 17:23 - CONCLUSION: 1. No acute intrathoracic abnormality. 2. Vague area of groundglass opacity within the right upper lobe with an associated 1 cm area of groundglass nodularity. This could simply relate to atelectasis. Given the nodularity I would suggest a repeat CT of the thorax in 6 months. Keny Patrick Jr., MD Head CT 09/21/16 Signed Impressions: Service Date/Time: Wednesday, September 21, 2016 17:19 - CONCLUSION: Technically limited exam. Areas of subtly increased density in the left basal ganglia should likely be followed. Johny Hitchcock MD Cervical Spine CT 09/21/16 Signed Impressions: Service Date/Time: Wednesday, September 21, 2016 17:21 - CONCLUSION: Normal examination. Keny Patrick Jr., MD Abdomen/Pelvis CT 09/21/16 Signed Impressions: Service Date/Time: Wednesday, September 21, 2016 17:25 - CONCLUSION: 1. No acute abnormality. Keny Patrick Jr., MD Assessment and Plan Assessment and Plan Metatarsal neck fractures 2,3,4, L foot, displaced, laterally angulated Discussed with patient open vs closed reduction and pinning of metatarsal neck fractures 2,3,4 L foot. Discussed that he can have this done in-house tomorrow vs outpatient when set up with worker's comp provider and either is viable option. Nonweightbearing L foot. He will discuss with his shelter case manager and let me know. Plan possibly to OR tomorrow PM. NPO after breakfast tomorrow. Splint ordered LLE per orthopedic dentist. Keaton Mckeon DPM Sep 22, 2016 18:41
[2016-09-22] MEDS: ACETAMINOPHEN 325 MG TAB PO PRN (23:19)
[2016-09-23] VITALS (12 sets, daily range): BP systolic 116–132; BP diastolic 59–75; PULSE 62–90; RESP 18–23; TEMP 97.9–98.5; O2SAT 97–100
[2016-09-23] MEDS: CHLORHEXIDINE GLUCONATE 2 % 1 PACK (2 CLOTHS) TOP SCH (04:50)
[2016-09-23] MEDS: DOCUSATE SODIUM 50 MG/SENNA 8.6 MG TAB PO SCH ×2 (08:47→21:00)
--- NOTE | 2016-09-23 13:58 | HHI.CCPN ---
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 He was tachycardic and had a temp of 103.6 upon admission. Agonal breathing at the scene, however GCS increased to 14-15 in the trauma bay. INJURIES: LEFT distal metatarsal fxs (2nd, 3rd and 4th) * CT in 6 months - nodule - ground glass 24 Hour Review/Hospital Course 09/22/2016 PTD: 1 Pt awake and sitting up in bed upon morning rounds. Friend at bedside. Pt c/o LEFT foot pain and swelling. 09/23/2016 PTD: 2 Patient out of bed and sitting up in a chair. Plan is for possible OR today for his left foot, however patient needs to talk to his bottom stainer to see if it will be covered by workman's comp. (Lesvia Thompson) Objective Vital Signs Date Time Temp Pulse Resp B/P Pulse Ox O2 Delivery O2 Flow Rate FiO2 09/23/16 12:00 73 09/23/16 12:00 97.9 18 116/59 100 09/23/16 08:20 21 09/21/16 20:30 Room Air 09/21/16 19:00 2.00 Intake and Output 09/22/16 09/22/16 09/23/16 08:00 16:00 00:00 Intake Total 827 ml 2100 ml 1200 ml Output Total 1150 ml 625 ml 1125 ml Balance -323 ml 1475 ml 75 ml (Lesvia Thompson) Result Diagram: 09/22/16 0406 09/22/16 0406 Imaging Last Impressions Foot X-Ray 09/22/16 0000 Signed Impressions: Service Date/Time: Thursday, September 22, 2016 11:05 - CONCLUSION: Distal metatarsal fractures. Lashonda Fuentes MD Ankle X-Ray 09/22/16 0000 Signed Impressions: Service Date/Time: Thursday, September 22, 2016 11:08 - CONCLUSION: Unremarkable study. Lashonda Fuentes MD Pelvis X-Ray 09/21/160 Signed Impressions: Service Date/Time: Wednesday, September 21, 2016 16:52 - CONCLUSION: No fracture observed on this limited study. Keny Patrick Jr., MD Chest X-Ray 7/11/17 1720 Signed Impressions: Service Date/Time: Wednesday, September 21, 2016 16:52 - CONCLUSION: No acute cardiopulmonary disease. Lashonda Fuentes MD Chest CT 09/21/16 1720 Signed Impressions: Service Date/Time: Wednesday, September 21, 2016 17:23 - CONCLUSION: 1. No acute intrathoracic abnormality. 2. Vague area of groundglass opacity within the right upper lobe with an associated 1 cm area of groundglass nodularity. This could simply relate to atelectasis. Given the nodularity I would suggest a repeat CT of the thorax in 6 months. Keny Patrick Jr., MD Head CT 09/21/16 0000 Signed Impressions: Service Date/Time: Wednesday, September 21, 2016 17:19 - CONCLUSION: Technically limited exam. Areas of subtly increased density in the left basal ganglia should likely be followed. Johny Hitchcock MD Cervical Spine CT 09/21/16 0000 Signed Impressions: Service Date/Time: Wednesday, September 21, 2016 17:21 - CONCLUSION: Normal examination. Keny Patrick Jr., MD Abdomen/Pelvis CT 09/21/16 0000 Signed Impressions: Service Date/Time: Wednesday, September 21, 2016 17:25 - CONCLUSION: 1. No acute abnormality. Keny Patrick Jr., MD Objective Remarks GENERAL: This is a 26 year old male OOB in a chair No distress noted. SKIN: Warm and dry. HEAD: Atraumatic. Normocephalic. EYES: PERRLA ENT: No nasal bleeding or discharge. Mucous membranes pink and moist. NECK: Trachea midline. No JVD. CARDIOVASCULAR: Regular rate and rhythm. RESPIRATORY: No accessory muscle use. Lungs are clear to auscultation. Breath sounds equal bilaterally. No distress or dyspnea. GASTROINTESTINAL: BS + x 4 quads. Abdomen soft, non-tender, nondistended. MUSCULOSKELETAL: Extremities without cyanosis, or edema. LEFT foot in a splint and wrapped with Collin bandage. + peripheral pulses x 4 extremities. Warm with good capillary refill and sensation. MAEW. NEUROLOGICAL: Awake and alert. Normal speech and pattern. (Lesvia Thompson) Urinary Catheter Assessment Urinary Catheter: No (Lesvia Thompson) Vascular Central Line Catheter Vascular Central Line Catheter: No (Lesvia Thompson) Assessment and Plan Assessment: (1) Fever ICD Code: R50.9 Status: Acute (2) Altered mental status ICD Code: R41.82 Status: Acute (3) Fall ICD Code: W19.XXXA Status: Acute Plan [place]: This is a 26-year-old male who fell from a roof. He was originally tachycardic and arrived with a temperature 103.6. He had agonal breathing at the scene. GCS 14-15 in the trauma bay. INJURIES: LEFT distal metatarsal fxs (2nd, 3rd and 4th) Consults: Podiatry. CCM. Diet: Regular diet. Tolerating po diet. Encourage good po intake with each meal. (NPO at this time for possible OR with podiatry.) Pulmonary: Encourage good pulmonary toileting. IS at bedside and pt encouraged to use. Rationale for use explained to patient, and verbalized understanding. PAIN Management: Percocet 5-10 mg every 4 hours. Activity: OOB. PT and OT ordered. (NWB LLE) GI prophylaxis: Not indicated at this time Bowel regimen: Colace and MOM. LBM: 0 DVT prophylaxis: Mechanical VTE with SCDs. Chemical management with Lovenox 30 BID SQ. DC Planning: Case management consulted for assistance with final discharge disposition. Awaiting patient's decision on whether he will have surgery or not today. Patient states he needs to check with his workman's comp case management rn first to see if surgery will be covered. Emotional support provided to patient and family at bedside and plan of care discussed. Discussed with RN at bedside. Patient is hemodynamically stable and being managed on the med/surg floor. LEFT distal metatarsal fxs (2nd, 3rd and 4th) Podiatry consult to assist in management and care Possible plan for surgery later today if patient agrees Pain management PT and OT ordered NWB LLE Heat stroke Rapid cooling Temp = normal Hydration Seizure precautions (Lesvia Thompson) Remarks seen and examined with LINOTYPER -agree with assessment and plan transferred floor -yesterday-no ICU issues DPM plan noted-patient to decide when to undergo surgical procedure (Fouzia Eduardo MD) Problem Qualifiers (1) Fever: Qualified Code: R50.9 - Fever, unspecified fever cause (2) Altered mental status: Qualified Code: R41.82 - Altered mental status, unspecified altered mental status type (3) Fall: Qualified Code: W19.XXXA - Fall, initial encounter Lesvia Thompson Sep 23, 2016 13:58 Fouzia Eduardo MD Sep 23, 2016 14:59
[2016-09-23] MEDS: ENOXAPARIN SODIUM 30 MG/0.3 ML SYRINGE SQ SCH (18:30)
[2016-09-23] MEDS: MAGNESIUM HYDROXIDE SUSP 30 ML CUP PO SCH (21:00)
[2016-09-24] VITALS (7 sets, daily range): BP systolic 116–135; BP diastolic 55–71; PULSE 67–89; RESP 17–18; TEMP 96.6–99.2; O2SAT 97–100
[2016-09-24] MEDS: CHLORHEXIDINE GLUCONATE 2 % 1 PACK (2 CLOTHS) TOP SCH ×2 (04:00→22:29)
[2016-09-24 07:29] LABS: HEMATOCRIT 40.4 % (39.0-51.0); MEAN CELL VOLUME 85.8 FL (80.0-100.0); MEAN CORPUSCULAR HEMOGLOBIN 29.2 PG (27.0-34.0); PLATELET COUNT 343 TH/MM3 (150-450); RED BLOOD COUNT 4.71 MIL/MM3 (4.50-5.90); RED CELL DISTRIBUTION WIDTH 12.7 % (11.6-17.2); REVIEW FLAG FINAL; WHITE BLOOD COUNT 5.3 TH/MM3 (4.0-11.0)
[2016-09-24 07:55] LABS: BICARBONATE 25.1 MEQ/L (21.0-32.0); POTASSIUM 4.4 MEQ/L (3.5-5.1)
[2016-09-24] MEDS: DOCUSATE SODIUM 50 MG/SENNA 8.6 MG TAB PO SCH ×2 (09:00→22:31)
--- NOTE | 2016-09-24 11:20 | HHI.PR ---
Subjective Subjective Notes PTD: 3 Patient observed transferring from couch to chair by hopping with PT at bedside. Patient offers no complaints at this time. He states his pain is okay. Plan for OR this afternoon at 5 PM. Objective Vitals/I&O Vital Signs Date Time Temp Pulse Resp B/P Pulse Ox O2 Delivery O2 Flow Rate FiO2 09/24/16 07:52 98 21 09/24/16 07:49 96.9 67 17 129/67 09/21/16 20:30 Room Air 09/21/16 19:00 2.00 Labs Laboratory Tests Test 09/24/16 06:48 White Blood Count 5.3 Red Blood Count 4.71 Hemoglobin 13.7 Hematocrit 40.4 Mean Corpuscular Volume 85.8 Mean Corpuscular Hemoglobin 29.2 Mean Corpuscular Hemoglobin 34.0 Concent Red Cell Distribution Width 12.7 Platelet Count 343 Mean Platelet Volume 8.2 Sodium Level 140 Potassium Level 4.4 Chloride Level 107 Carbon Dioxide Level 25.1 Anion Gap 8 Blood Urea Nitrogen 9 Creatinine 0.92 Estimat Glomerular Filtration 101 Rate Random Glucose 83 Calcium Level 8.7 Radiology Laboratory Tests Test 09/21/16 09/21/16 09/21/16 09/22/16 17:00 22:30 22:35 04:06 Bedside Hemoglobin 14.6 G/DL Bedside Hematocrit 43.0 % Differential Total Cells 100 Counted Neutrophils % (Manual) 54 % Band Neutrophils % 6 % Lymphocytes % 33 % Monocytes % 5 % Eosinophils % 2 % Neutrophils # (Manual) 10.3 TH/MM3 Platelet Estimate NORMAL Platelet Morphology Comment NORMAL Red Cell Morphology Comment NORMAL Prothrombin Time 10.7 SEC Prothromb Time International 1.0 RATIO Ratio Activated Partial 26.5 SEC Thromboplast Time Bedside Sodium 138 MMOL/L Bedside Potassium 3.7 MMOL/L Bedside Chloride 102 MMOL/L Bedside Blood Urea Nitrogen 9 MG/DL Bedside Creatinine 1.5 MG/DL Bedside Glucose 148 MG/DL Ethyl Alcohol Level LESS THAN 3 MG/DL Blood Type A POSITIVE Antibody Screen NEGATIVE Nasal Screen MRSA (PCR) MRSA NOT DETECTED Urine Opiates Screen NEG Urine Barbiturates Screen NEG Urine Amphetamines Screen NEG Urine Benzodiazepines Screen NEG Urine Cocaine Screen NEG Urine Cannabinoids Screen NEG Neutrophils (%) (Auto) 65.0 % Lymphocytes (%) (Auto) 22.9 % Monocytes (%) (Auto) 9.9 % Eosinophils (%) (Auto) 1.7 % Basophils (%) (Auto) 0.5 % Neutrophils # (Auto) 6.9 TH/MM3 Lymphocytes # (Auto) 2.4 TH/MM3 Monocytes # (Auto) 1.1 TH/MM3 Eosinophils # (Auto) 0.2 TH/MM3 Basophils # (Auto) 0.1 TH/MM3 CBC Comment DIFF FINAL Differential Comment Test 09/24/16 06:48 White Blood Count 5.3 TH/MM3 Red Blood Count 4.71 MIL/MM3 Hemoglobin 13.7 GM/DL Hematocrit 40.4 % Mean Corpuscular Volume 85.8 FL Mean Corpuscular Hemoglobin 29.2 PG Mean Corpuscular Hemoglobin 34.0 % Concent Red Cell Distribution Width 12.7 % Platelet Count 343 TH/MM3 Mean Platelet Volume 8.2 FL Sodium Level 140 MEQ/L Potassium Level 4.4 MEQ/L Chloride Level 107 MEQ/L Carbon Dioxide Level 25.1 MEQ/L Anion Gap 8 MEQ/L Blood Urea Nitrogen 9 MG/DL Creatinine 0.92 MG/DL Estimat Glomerular Filtration 101 ML/MIN Rate Random Glucose 83 MG/DL Calcium Level 8.7 MG/DL Narrative Exam GENERAL: This is a 26 year old male OOB in a chair No distress noted. SKIN: Warm and dry. HEAD: Atraumatic. Normocephalic. EYES: PERRLA ENT: No nasal bleeding or discharge. Mucous membranes pink and moist. NECK: Trachea midline. No JVD. CARDIOVASCULAR: Regular rate and rhythm. RESPIRATORY: No accessory muscle use. Lungs are clear to auscultation. Breath sounds equal bilaterally. No distress or dyspnea. GASTROINTESTINAL: BS + x 4 quads. Abdomen soft, non-tender, nondistended. MUSCULOSKELETAL: Extremities without cyanosis, or edema. LEFT foot in a splint and wrapped with Collin bandage. + peripheral pulses x 4 extremities. Warm with good capillary refill and sensation. MAEW. NEUROLOGICAL: Awake and alert. Normal speech and pattern A/P Problem List: (1) Fever (2) Altered mental status (3) Fall (4) Head injury due to trauma Assessment and Plan [place]: This is a 26-year-old male who fell from a roof. He was originally tachycardic and arrived with a temperature 103.6. He had agonal breathing at the scene. GCS 14-15 in the trauma bay. INJURIES: LEFT distal metatarsal fxs (2nd, 3rd and 4th) Procedures: 09/24: To OR with podiatry at 5 PM tonight Consults: Podiatry. [facility]. Diet: Regular diet. Tolerating po diet. Encourage good po intake with each meal. (NPO at this time for OR with podiatry.) Pulmonary: Encourage good pulmonary toileting. IS at bedside and pt encouraged to use. Rationale for use explained to patient, and verbalized understanding. PAIN Management: Percocet 5-10 mg every 4 hours. Activity: OOB. PT and OT ordered. (NWB LLE) GI prophylaxis: Not indicated at this time Bowel regimen: Colace and MOM. LBM: 09/24. DVT prophylaxis: Mechanical VTE with SCDs. Chemical management with Lovenox 30 BID SQ. DC Planning: Case management consulted for assistance with final discharge disposition. Patient is a workman's compensation case. DME ordered. No PT recommendations at this time. Emotional support provided to patient and family at bedside and plan of care discussed. Discussed with RN at bedside. Patient is hemodynamically stable and being managed on the med/surg floor. LEFT distal metatarsal fxs (2nd, 3rd and 4th) Podiatry consult to assist in management and care Plan for surgery tonight at 5 PM with podiatry Pain management PT and OT ordered NWB LLE Heat stroke Rapid cooling Temp = normal Hydration Seizure precautions Problem Qualifiers (1) Fever: Qualified Code: R50.9 - Fever, unspecified fever cause (2) Altered mental status: Qualified Code: R41.82 - Altered mental status, unspecified altered mental status type (3) Fall: Qualified Code: W19.XXXA - Fall, initial encounter (4) Head injury due to trauma: Qualified Code: S09.90XA - Head injury due to trauma, initial encounter Lesvia Thompson Sep 24, 2016 11:20
[2016-09-24] MEDS ORDERED: LACTATED RINGER'S 1000 ML INJ 1,000 ML IV ONE (11:48)
[2016-09-24] MEDS ORDERED: PROPOFOL 200 MG/20 ML AMP IV ONE (11:48)
[2016-09-24] MEDS ORDERED: ONDANSETRON HCL 4 MG/2 ML VIAL IV PUSH ONE (11:48)
[2016-09-24] MEDS ORDERED: WALKER WHEELS/F1 MIS (13:31)
[2016-09-24] MEDS ORDERED: MAGN400S PO (13:33)
[2016-09-24] MEDS ORDERED: SENN1TAB PO (13:33)
[2016-09-24] MEDS ORDERED: BUPIVACAINE HCL PF 0.25% 30 ML VIAL ONE (18:15)
[2016-09-24] MEDS ORDERED: GENTAMICIN SULFATE 80 MG/2 ML VIAL ONE (18:15)
[2016-09-24] MEDS: ENOXAPARIN SODIUM 30 MG/0.3 ML SYRINGE SQ SCH (18:30)
[2016-09-24] MEDS ORDERED: ceFAZolin 2 GM PREMIX 50 ML ONE (18:41)
[2016-09-24] MEDS ORDERED: BUPIVACAINE HCL PF 0.25% 30 ML VIAL INFIL ONE (19:25)
[2016-09-24] MEDS ORDERED: fentaNYL CITRATE 250 MCG/5 ML AMP ONE (21:07)
--- NOTE | 2016-09-24 21:12 | HHI.PR ---
Immediate Post Op Note Procedure Date: Sep 24, 2016 Pre Op Diagnosis: L 2nd, 3rd, 4th metatarsal neck fractures, displaced Post Op Diagnosis: same Surgeon: Keaton Mckeon DPM Lens Finisher(s): Staff Procedure: Open reduction with pinning of metatarsal fractures 2,3,4 Left foot Findings: Consistent with diagnosis. Fractures unstable and unable to adequately reduce percutaneously. Dorsal linear incision made between 2nd and 3rd metatarsals and both fractures to 2nd and 3rd metatarsal necks accessed, reduced, and pinned with 0.62 k-wires, respectively. Reduction confirmed with c-arm. Dorsal linear incision made to 4th metatarsal area to access and reduce fracture, followed by pinning with 0.62 K-wire. Reduction confirmed with c-arm, followed closure of dorsal incisions with 3-0 vicryl and nylon, followed by xeroform to incisions and pin sites and short posterior well-padded splint. 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 Home nursing for dressing changes in 1 week and follow up in my clinic in 2 weeks to assess for suture removal. Additional Information: 2g Ancef IV preop Complications: None Specimen(s) removed: none Estimated blood loss: minimal Anesthesia: LMA, Local (20mL 0.25% marcaine plain) Drains: None IVF Tourniquet time (min at mmHg) 60 min @ 250mmHg L thigh Patient to: PACU Patient Condition: Good Implant/Devices: Other (0.62 K-wire x 3) Date/Time of Procedure: SEE SURGICAL CARE RECORD Keaton Mckeon DPM Sep 24, 2016 21:12
[2016-09-24] MEDS ORDERED: *morphine SULFATE 8 MG/ML PERIprocedure ONLY ONE (21:37)
--- NOTE | 2016-09-24 21:46 | RADRPT ---
EXAM DATE/TIME: 09/24/2016 19:45 [facility] COMPARISON: FOOT LEFT LIMITED (2VWS), September 22, 2016, 11:05. INDICATIONS : ORIF left 2.3.4 toes MEDICAL HISTORY : None. SURGICAL HISTORY : None. ENCOUNTER: Initial ACUITY: 3 days PAIN SCORE: Non-responsive. LOCATION: Left foot FINDINGS: Several views in the operating room show pinning across the second, third and fourth distal metatarsa l fractures. Fourth metatarsal pain at first extends outside of the bone but is corrected. The third metatarsal pin has its tip extending slightly out of the dorsal cortex. The fractures are in near-bryan tomic alignment. CONCLUSION: Second, third and fourth distal metatarsal pinning as above. Johny Samano MD on September 24, 2016 at 21:41 Board Certified Radiologist. This report was verified electronically.
--- NOTE | 2016-09-24 21:52 | RADRPT ---
EXAM DATE/TIME: 09/24/2016 21:15 [facility] COMPARISON: FOOT LEFT LIMITED (2VWS), September 22, 2016, 11:05. INDICATIONS : Post operative for metatarsal pinning. MEDICAL HISTORY : None. SURGICAL HISTORY : None. ENCOUNTER: Initial ACUITY: 1 day PAIN SCORE: Non-responsive. LOCATION: Left foot. FINDINGS: Pins now extend from distal to proximal across the second, third and fourth metatarsophalangeal joint s and distal metatarsals. Alignment is near-anatomic. The third metatarsal pin is slightly crowded to the dorsal cortex. A splint is present which obscures fine bony detail. CONCLUSION: Distal metatarsal fractures have been pinned as above. Alignment is near-anatomic. Johny Samano MD on September 24, 2016 at 21:49 Board Certified Radiologist. This report was verified electronically.
[2016-09-24] MEDS ORDERED: DO NOT ADM ANY ANTICOAGULANT DRUGS PRN (22:00)
[2016-09-24] MEDS: oxyCODONE/ACETAMINOPHEN 5 MG/325 MG TAB PO PRN (22:31)
[2016-09-24] MEDS: MAGNESIUM HYDROXIDE SUSP 30 ML CUP PO SCH (22:31)
[2016-09-25 00:40] VITALS: BP 127/69; PULSE 97; RESP 18; TEMP 100.4; O2SAT 98
[2016-09-25 04:20] VITALS: BP 111/61; PULSE 96; RESP 18; TEMP 100.4; O2SAT 100
[2016-09-25] MEDS: oxyCODONE/ACETAMINOPHEN 5 MG/325 MG TAB PO PRN ×2 (05:03→11:17)
[2016-09-25 08:00] VITALS: BP 117/68; PULSE 90; RESP 20; TEMP 99.3; O2SAT 98
[2016-09-25] MEDS: DOCUSATE SODIUM 50 MG/SENNA 8.6 MG TAB PO SCH (09:00)
--- NOTE | 2016-09-25 10:22 | PD.POD ---
Subjective Podiatric Problems POD #1, s/p open reduction with pinning of metatarsal neck fractures 2, 3, 4 Left foot Past Med/Surg/Social History Social History Smoking Status: Light Tobacco Smoker Objective Vital Signs Vital Signs Date Time Temp Pulse Resp B/P Pulse Ox O2 Delivery O2 Flow Rate FiO2 09/25/16 08:00 99.3 90 20 117/68 98 09/25/16 04:20 100.4 96 18 111/61 100 09/25/16 00:40 100.4 97 18 127/69 98 09/24/16 22:00 99.2 89 18 116/69 100 09/24/16 21:46 80 16 113/58 96 Room Air 09/24/16 21:30 82 16 114/58 96 Room Air 09/24/16 21:15 85 16 115/57 96 Room Air 09/24/16 21:00 84 16 109/55 97 Room Air 09/24/16 20:50 98.9 82 16 115/56 96 Nasal Cannula 2 09/24/16 18:10 98.3 84 16 117/64 100 09/24/16 15:47 99.2 77 17 125/63 100 09/24/16 11:14 96.6 80 17 135/55 97 Coded Allergies: No Known Allergies (Unverified , 09/21/16) Medications and IVs Current Medications Medications (Trade) Dose Ordered Sig/Glynn Route Start Time Stop Time Status Last Admin (Zofran Inj) 4 mg Q6H PRN IV 09/21/16 18:30 (Lovenox Inj) 30 mg Q24H SQ 09/21/16 18:30 09/22/16 18:05 Miscellaneous Information 1 Q361D XX 09/21/16 18:30 (Chlorhexidine 2% Cloth) 3 pack Taper DAILY@04 TOP 09/22/16 04:00 09/18/17 03:59 09/23/16 04:50 (Chlorhexidine 2% Cloth) 3 pack UNSCH PRN TOP 09/21/16 18:30 (Cat-Colace) 1 tab BID PO 09/21/16 21:00 09/24/16 22:31 (Tylenol) 650 mg Q6H PRN PO 09/21/16 23:45 09/22/16 23:19 (Percocet 5-325 Mg) 1 tab Q6H PRN PO 09/22/16 12:15 09/25/16 05:03 (Milk Of Nettie Montez) 30 ml HS PO 09/23/16 21:00 09/24/16 22:31 Miscellaneous Information ALL NURSING DEPARTME... UNSCH PRN .XX 09/24/16 22:00 09/25/16 21:59 Other Results Laboratory Tests Test 09/21/16 09/21/16 09/21/16 09/22/16 17:00 22:30 22:35 04:06 Bedside Hemoglobin 14.6 G/DL Bedside Hematocrit 43.0 % Differential Total Cells 100 Counted Neutrophils % (Manual) 54 % Band Neutrophils % 6 % Lymphocytes % 33 % Monocytes % 5 % Eosinophils % 2 % Neutrophils # (Manual) 10.3 TH/MM3 Platelet Estimate NORMAL Platelet Morphology Comment NORMAL Red Cell Morphology Comment NORMAL Prothrombin Time 10.7 SEC Prothromb Time International 1.0 RATIO Ratio Activated Partial 26.5 SEC Thromboplast Time Bedside Sodium 138 MMOL/L Bedside Potassium 3.7 MMOL/L Bedside Chloride 102 MMOL/L Bedside Blood Urea Nitrogen 9 MG/DL Bedside Creatinine 1.5 MG/DL Bedside Glucose 148 MG/DL Ethyl Alcohol Level LESS THAN 3 MG/DL Blood Type A POSITIVE Antibody Screen NEGATIVE Nasal Screen MRSA (PCR) MRSA NOT DETECTED Urine Opiates Screen NEG Urine Barbiturates Screen NEG Urine Amphetamines Screen NEG Urine Benzodiazepines Screen NEG Urine Cocaine Screen NEG Urine Cannabinoids Screen NEG Neutrophils (%) (Auto) 65.0 % Lymphocytes (%) (Auto) 22.9 % Monocytes (%) (Auto) 9.9 % Eosinophils (%) (Auto) 1.7 % Basophils (%) (Auto) 0.5 % Neutrophils # (Auto) 6.9 TH/MM3 Lymphocytes # (Auto) 2.4 TH/MM3 Monocytes # (Auto) 1.1 TH/MM3 Eosinophils # (Auto) 0.2 TH/MM3 Basophils # (Auto) 0.1 TH/MM3 CBC Comment DIFF FINAL Differential Comment Test 09/24/16 06:48 White Blood Count 5.3 TH/MM3 Red Blood Count 4.71 MIL/MM3 Hemoglobin 13.7 GM/DL Hematocrit 40.4 % Mean Corpuscular Volume 85.8 FL Mean Corpuscular Hemoglobin 29.2 PG Mean Corpuscular Hemoglobin 34.0 % Concent Red Cell Distribution Width 12.7 % Platelet Count 343 TH/MM3 Mean Platelet Volume 8.2 FL Sodium Level 140 MEQ/L Potassium Level 4.4 MEQ/L Chloride Level 107 MEQ/L Carbon Dioxide Level 25.1 MEQ/L Anion Gap 8 MEQ/L Blood Urea Nitrogen 9 MG/DL Creatinine 0.92 MG/DL Estimat Glomerular Filtration 101 ML/MIN Rate Random Glucose 83 MG/DL Calcium Level 8.7 MG/DL Exam-Podiatry Remarks NVI, compartments soft. Pins in place to plantar forefoot in well-padded posterior splint. Pain present, but controlled Assessment & Plan A/P POD #1, s/p open reduction with pinning of metatarsal neck fractures 2, 3, 4 Left foot Continue NWB in splint LLE Educated on smoking reducing bone healing Ok to d/c when tolerating PO pain meds only Keaton Mckeon DPM Sep 25, 2016 10:22
[2016-09-25] MEDS ORDERED: PERC5TAB12 PO (11:06)
[2016-09-25 13:00] VITALS: BP 118/64; PULSE 107; RESP 20; TEMP 98.1; O2SAT 97
--- NOTE | 2016-09-25 13:34 | HHI.DS ---
Discharge Summary Admission Date Sep 21, 2016 at 18:51 Admitting Diagnosis fall,head injury,fever,AMS (1) Fever (2) Altered mental status (3) Fall (4) Head injury due to trauma CBC/BMP: 09/24/16 0648 09/24/16 0648 PE at Discharge GENERAL: This is a 26 year old male OOB in a chair No distress noted. SKIN: Warm and dry. HEAD: Atraumatic. Normocephalic. EYES: PERRLA ENT: No nasal bleeding or discharge. Mucous membranes pink and moist. NECK: Trachea midline. No JVD. CARDIOVASCULAR: Regular rate and rhythm. RESPIRATORY: No accessory muscle use. Lungs are clear to auscultation. Breath sounds equal bilaterally. No distress or dyspnea. GASTROINTESTINAL: BS + x 4 quads. Abdomen soft, non-tender, nondistended. MUSCULOSKELETAL: Extremities without cyanosis, or edema. LEFT foot in a splint and wrapped with Collin bandage. + peripheral pulses x 4 extremities. Warm with good capillary refill and sensation. MAEW. NEUROLOGICAL: Awake and alert. Normal speech and pattern Hospital Course [place]: This is a 26-year-old male who fell from a roof. He was originally tachycardic and arrived with a temperature 103.6. He had agonal breathing at the scene. GCS 14-15 in the trauma bay. INJURIES: LEFT distal metatarsal fxs (2nd, 3rd and 4th) Procedures: 09/24: Pinnding of the metatarsals Consults: Podiatry. [facility]. The patient would like to go home. The patient is now tolerating a po diet. Eating and drinking well. Pain is being managed well with PO pain medications, and patient is being a provided with a script for pain meds upon discharge. (NO driving while taking narcotic pain medication enforced to patient.) Pt is having regular bowel movements, and have recommended to patient to continue with stool softeners while taking narcotic pain medications to prevent constipation. Pt has been participating in PT and OT while admitted at [place] and has been ambulating with their assistance and independently . Patient observed ambulating in the hallways with walker without assistance. All follow up appointments have been provided and discussed with the patient. It is recommended that the patient keeps all his follow up appointments for continued recovery. has arranged for dressing changes in 1 week and return to her office in 2 weeks for suture removal. Therefore, the patient is stable to be safely discharged home from a trauma surgery standpoint. Thank you for allowing us to participate in his care. We wish Demarcus the best in his recovery. LEFT distal metatarsal fxs (2nd, 3rd and 4th) Podiatry consult to assist in management and care 09/24: OR for pinning of metatarsals Pain management PT and OT ordered NWB E Home health care RN to change dressing in 1 week Return to podiatry office in 2 weeks for suture removal Heat stroke Rapid cooling Temp = normal Hydration Seizure precautions Pt Condition on Discharge: Stable Discharge Disposition: Discharge Home Discharge Instructions DIET: Follow Instructions for: As Tolerated, No Restrictions Activities you can perform: Non Weight Bearing Activities to Avoid: Driving for 24 hrs, Concussion Sports, Contact Sports, Weight Bearing, Strenuous Activity Other Activity Instructions: Nonweight bearing left lower extremity Lesvia Thompson Sep 25, 2016 13:33
[2016-09-25] MEDS ORDERED: ACETAMINOPHEN 1000 MG/100 ML VIAL IV ONE (16:30)
[2016-09-25 16:40] VITALS: BP 131/79; PULSE 100; RESP 20; TEMP 101.2; O2SAT 98
[2016-09-25 18:00] VITALS: TEMP 98.7
--- NOTE | 2016-09-26 18:25 | MP ---
cc: EKATON ERICKSON DPM DATE OF SURGERY: 09/24/2016. PREOPERATIVE DIAGNOSIS Left second, third and fourth metatarsal neck fractures displaced. POSTOPERATIVE DIAGNOSIS Left second, third and fourth metatarsal neck fractures displaced. OPERATIVE PROCEDURE PERFORMED: Open reduction with pinning of metatarsal fractures 2, 3 and 4, left foot. SURGEON: Keaton Erickson DPM. [employer] DEVELOPER DBA: Staff. ANESTHESIA LMA plus local consisting of 20 mL of 0.25% Marcaine plain, 2 grams Ancef given IV preoperatively COMPLICATIONS: None. ESTIMATED BLOOD LOSS: Minimal. TOURNIQUET TIME: Sixty minutes on the left thigh at 250 mmHg. CONDITION: Stable to post-anesthesia care unit. IMPLANTS: Implanted were three 0.62 K-wires. DISPOSITION: Non-weightbearing left lower extremity and posterior splint. Follow up in clinic in one to two weeks for a dressing change and suture removal, respectively. INDICATIONS FOR THE PROCEDURE: The patient at presented to the emergency department after falling off a roof. He sustained a heat stroke, fell off the roof after having a seizure and had an injury to his left foot and was unable to bear weight without pain. He was noted to have left second, third and fourth metatarsal neck fractures that were displaced. I discussed with the patient that these fractures were displaced enough to warrant reduction and percutaneous versus open pinning to reduce the fracture and hold reduction well-healing. He understood the risks, benefits and complications of surgery and wished to proceed. DESCRIPTION OF THE PROCEDURE IN DETAIL: He was seen in preop holding by myself, nursing staff and anesthesia where the correct patient side and site were all confirmed to be correct in the left foot. He was then taken to the surgical suite and placed in supine position where the left foot was prepped and draped in normal sterile fashion. After timeouts were performed as per hospital protocol, attention was directed to the left foot where a C-arm was utilized in order to localize the fractures. A pin was utilized first in the second metatarsal neck fracture area where it was found to be highly unstable and reduction was unable to be held in this angle and pin adequately so it was deemed necessary to open up the foot to reduce the fracture. The dorsal linear incision was made between the second and third metatarsal neck areas where exposure was achieved to the second metatarsal neck fracture dorsally while the second metatarsal head was able to be held reduced and a pin was able to be placed from the metatarsal head into the metatarsal shaft of the second metatarsal. It was known that the lateral aspect of second metatarsal was blown out and that fragment was noted to be unstable but in place enough to possibly incorporate into the area and was left in intact since it had significant soft tissue attachments to that area and was not floating and did not interfere with the joint. Reduction was confirmed with C-arm. Following this, attention was directed to the third metatarsal neck fracture through that same incision where it was exposed. A pin was placed through the metatarsal head from the dorsal incision site due to difficulty with pin placement and reduction otherwise and the pin was run through the plantar foot and then retrograde into the distal aspect of the metatarsal shaft in order to hold reduction in that area. Following this, attention was directed to the dorsal and slightly lateral aspect of the fourth metatarsal neck fracture where another linear incision was made with care to avoid neurovascular structures and dissection was taken down to expose the fourth metatarsal neck fracture where reduction was held and pinning was achieved through the fourth metatarsal head into the fourth metatarsal shaft to maintain reduction. C-arm was utilized to confirm reduction of these fractures and the incision areas were copiously irrigated followed by closure with 3-0 Vicryl and 3-0 nylon to the dorsal foot followed by Xeroform to incision sites and pin sites and a short posterior well-padded splint in order to protect the pin sites. The patient tolerated procedure and anesthesia well and was taken back to the post-anesthesia care unit with vital signs stable and vascular status intact to the left lower extremity. He will be non-weightbearing to the left lower extremity in this well-padded posterior splint. I discussed with his workers comp imaging manager, Claudia, who was contacted prior to surgery that home nursing would be adequate for dressing change in approximately one week and that he can follow up in the clinic in about two weeks to assess for suture removal at that time and to get x-rays to confirm if any healing is occurring and becoming weak to determine when pins may be removed. Keaton PATINO/ESVIN /4:07 PM /6:17 PM
== END 2016-09-25 18:28 | disposition home health service (06) | DRG 909 ==
LOC: NEPI 16:56 → EDBD 18:51 → NEDA 18:51 → N03A 18:56 → N06B 09-23 19:25
PROVIDERS: ADMIT Surgery Trauma Surgery; ATTEND Surgery Trauma Surgery
PROC: 0QSP04Z Reposition Left Metatarsal with Internal Fixation Device, Open Approach (ICD-10-PCS; principal; 2016-09-24 19:05)
DX: T67.0XXA Heatstroke and sunstroke, initial encounter (principal); R56.9 Unspecified convulsions; S09.90XA Unspecified injury of head, initial encounter; S92.322A Displaced fracture of second metatarsal bone, left foot, initial encounter for closed fracture; E86.0 Dehydration; S92.332A Displaced fracture of third metatarsal bone, left foot, initial encounter for closed fracture; S92.342A Displaced fracture of fourth metatarsal bone, left foot, initial encounter for closed fracture; W13.2XXA Fall from, out of or through roof, initial encounter; Y93.H3 Activity, building and construction; Y92.9 Unspecified place or not applicable; Y99.0 Civilian activity done for income or pay; R40.4 Transient alteration of awareness; X30.XXXA Exposure to excessive natural heat, initial encounter; R00.0 Tachycardia, unspecified; R50.9 Fever, unspecified; F17.200 Nicotine dependence, unspecified, uncomplicated
CPT/HCPCS: 51702; 70450; 71010; 71260; 72125; 72170; 73600; 73620; 73630; 74177; 76000; 80048; 80307; 82435; 82565; 82947; 84132; 84295; 84520; 85007; 85025; 85027; 85610; 85730; 86850; 86900; 86901; 87641; 99291; G0390; J0690; J1580; J1650; J2270; J2405; J3010; J7030; J7120; L0150; Q9967